=== PATIENT | male | born 1935 | race Asian ===

== ENCOUNTER 2018-12-08 12:14 | Emergency (ER) | payer OTHER ==
[~2018-12-08] VITALS: Ht 172.7 cm; Wt 99.8 kg
[~2018-12-08 12:14] MED LIST: ABACAVIR SULFAT1 TAB PO; AMLODIPINE BESYLATE PO; ASPIRIN 81 LOW81 MG PO; ASPIRIN/ENTERIC81 MG PO; CARV3.12 PO; CLOPIDOGREL75 MG PO; DOCU SOFT100 MG PO; EQ ALLERGY50 MCG/ACT NAS; EUTHYROX100 MCG PO; FERROUS SULF325 M1 PO; FOLI1TAB26 PO; GENERLAC10 GM/15 M PO; HYDRALAZINE25 MG PO; IRON325 MG PO; MAG OXIDE400 MG PO; MULTIVITAMI1 PO; PANTOPRAZOLE 40MG TA PO; PRAVACHOL20 MG PO; SERT100T PO; TRAZODONE HYDRO50 MG PO; TYLENOL325 MG PO; VITAMIN D31000 UNI1 PO; WELLBUTRIN200 MG PO
[2018-12-08 19:30] VITALS: BP 175/80; TEMP 97.9
[2018-12-19] MEDS ORDERED: WELLBUTRIN SR 100MG PO (11:45)
[2018-12-19] MEDS ORDERED: DONE5TAB PO (11:46)
[2018-12-19] MEDS ORDERED: MEMA5TAB PO (11:47)
[2018-12-19] MEDS ORDERED: RISP1TAB PO (11:50)
[2018-12-19] MEDS ORDERED: RISP50IN IM (11:50)
== END 2018-12-08 19:30 | disposition other institution (70) ==
LOC: ED 12:14
DX: R40.0 Somnolence (principal); E86.0 Dehydration; T43.595A Adverse effect of other antipsychotics and neuroleptics, initial encounter; Y92.238 Other place in hospital as the place of occurrence of the external cause
CPT/HCPCS: 93005; 96360; 99284